=== PATIENT | female | born 1990 | race Caucasian/White ===

== ENCOUNTER 2017-06-03 16:05 | Emergency (ER) | payer OTHER ==
[~2017-06-03] VITALS: Ht 160 cm; Wt 56.7 kg
[2017-06-03 16:46] VITALS: BP_SYST 125
[2017-06-03 18:00] VITALS: BP_SYST 120
== END 2017-06-03 20:15 | disposition left against medical advice (07) ==
LOC: SED 16:05
DX: R11.10 Vomiting, unspecified (principal); Z53.21 Procedure and treatment not carried out due to patient leaving prior to being seen by health care provider

== ENCOUNTER 2017-06-04 15:37 | Emergency (ER) | payer OTHER ==
[~2017-06-04] VITALS: Ht 160 cm; Wt 56.7 kg
[2017-06-04 15:37] VITALS: BP_SYST 105
== END 2017-06-04 19:45 | disposition left against medical advice (07) ==
LOC: SED 15:37
DX: R11.10 Vomiting, unspecified (principal); R53.1 Weakness

== ENCOUNTER 2021-12-17 15:17 | Emergency (ER) | payer MEDICAID, OTHER ==
[~2021-12-17] VITALS: Ht 160 cm; Wt 56.2 kg
[2021-12-17 15:55] VITALS: BP_SYST 107
--- NOTE | 2021-12-17 16:01 | NUR ---
Patient triaged and placed in waiting room. VSS and patient appears in no acute distress at this time. Accompanied by self, awaiting available bed, and MD notified of need for MSE.
--- NOTE | 2021-12-17 16:10 | NUR ---
PATIENT BROUGHT IN COMPLAINING OF FRONTAL HEADACHE X 1 MONTH. WAS RECENTLY DIAGNOSED WITH COVID 19 ON December AND TESTED NEGATIVE December. PATIENT REPORTS THAT NOW HEADACHE IS ON LEFT SIDE ONLY. PAIN 7/10. DENIES ANY TRAUMA, BLURRED VISION, DIZZINESS, NAUSEA OR VOMITING.
--- NOTE | 2021-12-17 18:29 | NUR ---
ER Dr. CALLES IN [facility] examining patient.
[2021-12-17] MEDS ORDERED: ONDA-8 TL (18:48)
[2021-12-17] MEDS ORDERED: FIORICET PO (18:48)
[2021-12-17 19:10] VITALS: BP_SYST 108
--- NOTE | 2021-12-17 19:10 | NUR ---
Patient given written and verbal discharge instructions and verbalizes understanding. ER MD discussed with patient the results and treatment provided. Patient in stable condition. ID arm band removed. Rx of FIORICET, ZOFRAN given. Patient educated on pain management and to follow up with PMD. Pain Scale 0/10 Opportunity for questions provided and answered. Medication side effect fact sheet provided.
== END 2021-12-17 19:10 | disposition home or self-care (01) ==
LOC: SED 15:17
DX: R51.9 Headache, unspecified (principal); Z79.899 Other long term (current) drug therapy
CPT/HCPCS: 81025; 99283